=== PATIENT | female | born 1950 | race Caucasian/White ===

== ENCOUNTER 2021-12-16 12:46 | Emergency (ER) | payer BC, MEDICAID ==
[2021-12-16 13:58] LABS: HEMOGLOBIN 14.9 gm/dl (12.3-15.3); RED BLOOD COUNT 4.76 M/UL (4.00-5.10); WHITE BLOOD COUNT 9.4 K/UL (4.5-11.0)
[2021-12-16 14:33] LABS: BUN/CREATININE RATIO 38 (0-10)
[2021-12-16] MEDS ORDERED: CEPHALEXIN500 MG PO (17:29)
== END 2021-12-16 17:37 | disposition home or self-care (01) ==
LOC: ER1 12:46
PROVIDERS: Physician Assistant
DX: N30.01 Acute cystitis with hematuria (principal); I25.10 Atherosclerotic heart disease of native coronary artery without angina pectoris
CPT/HCPCS: 80053; 81001; 83605; 83690; 85025; 87077; 87086; 87186; 93005; 99284; J2405; Q9967